=== PATIENT | female | born 1990 | race Caucasian/White ===

== ENCOUNTER 2021-07-01 17:08 | Emergency (ER) | payer MEDICAID ==
[2021-07-01 18:15] LABS: Appearance CLEAR (CLEAR); Bilirubin NEGATIVE (NEGATIVE); Dipstick done @ ? MAIN LAB; Glucose 250 mg/dL (NEGATIVE); Ketones NEGATIVE (NEGATIVE); Nitrite NEGATIVE (NEGATIVE); Ph 5.5 (5-6); Protein,Urine Dip TRACE (Negative); RBC NEGATIVE Ery/ul (0-5); Specific Gravity >=1.030 (1.005-1.025); Urobilinogen 0.2 mg/dL (0-1)
[2021-07-01 18:16] LABS: Absolute Neutrophil Ct (ANC) 9.88 (1.4-6.9); Basophil (Absolute #) 0.04 (0-0.4); Eosinophil % 2.1 % (0.00-5.0); Eosinophil (Absolute #) 0.28 (0-0.5); Hematocrit 41.5 % (35-47); Hemoglobin 13.8 gm/dl (12.0-16.0); Lymphocyte (Absolute #) 2.43 (1.0-4.6); Lymphocytes % 17.9 % (24.0-44.0); Mean Cell Volume 83.8 fl (78-100); Mean Corpuscular Hemoglobin 27.9 pg (26-32); Mean Corpuscular Hgb Concent. 33.3 g/dl (32-36); Mean Platelet Volume 10.2 fl (7.5-11.0); Monocyte (Absolute #) 0.93 (0.0-1.3); Monocytes % 6.9 % (0.0-12.0); Neutrophil % 72.8 % (36.0-66.0); Platelet Count 400 K/mm3 (150-450); Red Blood Count 4.95 M/mm3 (4.1-5.4); White Blood Count 13.6 K/mm3 (4.0-10.5)
[2021-07-01 18:30] LABS: Epithelial Cells RARE /HPF (FEW); Mucus SLIGHT /HPF (NEGATIVE); WBC 0-2 /HPF (0-5)
[2021-07-01 18:32] LABS: Urine Cultured Indicated? NO
[2021-07-01 18:38] LABS: ALBUMIN 4.3 g/dL (3.5-5.0); ALKALINE PHOSPHATASE 77 U/L (38-126); ANION GAP 14.5 MEQ/L (5-15); BLOOD UREA NITROGEN 10 mg/dL (7-17); CHLORIDE 105 mmol/L (98-107); Calcium 9.1 mg/dL (8.4-10.2); Carbon Dioxide 21 mmol/L (22-30); Creatinine 1 0.65 mg/dL (0.52-1.04); EST GLOMERULAR FILTRATION RATE > 60.0 ML/MIN; Glucose 190 mg/dL (74-106); Potassium 3.6 mmol/L (3.5-5.1); SGOT/AST 22 U/L (14-36); SGPT/ALT 19 U/L (0-35); SODIUM 137 mmol/L (137-145); Total Protein 7.5 g/dL (6.3-8.2)
[2021-07-01] MEDS ORDERED: Trandate 100 MG PO ONE (19:30)
--- NOTE | 2021-07-01 19:40 | ERPHSYRPT ---
- History of Present Illness Time Seen by Provider: 07/01/21 17:45 Source: patient Exam Limitations: no limitations Patient Subjective Stated Complaint: pt states "I was at the clinic and they told me my blood pressure was high." Triage Nursing Assessment: pt ambulated into the er; pt is axo x4; c/o HTN; pt states she has underlying hypertension and stop taking medicine back in december; pt is 5 weeks ; pt denies V/D; pt denies pain; clear apical pulse; strong rodney radial pulses; strong rodney pedal pulses; hypertension; tachycardic Physician History: G1, P0, Patient is a 30-year-old female presents to our ED as a referral from outpatient clinic. Patient states she has been experiencing nausea and felt unwell. Patient knew that she had not taken her blood pressure medication since December and was concerned. Patient took a home test that she has missed her period and it resulted as positive. Patient went to an outpatient clinic where her blood pressure was assessed and confirmed. Patient was then sent to our ED because her blood pressure was elevated. Patient otherwise asymptomatic. No chest pain or shortness of breath. No nausea vomiting or diaphoresis. No vaginal bleeding. No pelvic pain. No abdominal pain. Patient was previously on hydrochlorothiazide and a beta-rober. Patient feels well otherwise. She voices no other complaints or concerns at this time. Timing/Duration: today Severity: moderate Modifying Factors: Improves With: nothing Associated Symptoms: denies symptoms Allergies/Adverse Reactions: No Known Drug Allergies Allergy (Unverified 07/01/21 17:29) Hx Tetanus, Diphtheria Vaccination/Date Given: No (unknown) Hx Influenza Vaccination/Date Given: No Hx Pneumococcal Vaccination/Date Given: No Immunizations Up to Date: Yes Travel Risk - International Travel Have you traveled outside of the country in past 3 weeks: No - Coronavirus Screening Are you exhibiting any of the following symptoms?: No Close contact with a COVID-19 positive Pt in past 14-21 Days: No - Vaccine Status Have you recieved a Covid-19 vaccination: Yes 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[employer] - Review of Systems Constitutional: No Symptoms Eyes: No Symptoms Ears, Nose, & Throat: No Symptoms Respiratory: No Symptoms Cardiac: No Symptoms Abdominal/Gastrointestinal: No Symptoms Genitourinary Symptoms: No Symptoms Musculoskeletal: No Symptoms Skin: No Symptoms Neurological: No Symptoms Psychological: No Symptoms Endocrine: No Symptoms Hematologic/Lymphatic: No Symptoms Immunological/Allergic: No Symptoms All Other Systems: Reviewed and Negative - Past Medical History Pertinent Past Medical History: Yes Neurological History: No Pertinent History ENT History: No Pertinent History Cardiac History: Hypertension Respiratory History: Asthma Endocrine Medical History: No Pertinent History Musculoskeletal History: No Pertinent History GI Medical History: No Pertinent History History: No Pertinent History Psycho-Social History: Bipolar Female Reproductive Disorders: No Pertinent History - Past Surgical History Past Surgical History: Yes Other Surgical History: cyst removed from left wrist - Social History Smoking Status: Never smoker Exposure to second hand smoke: No Drug Use: none Patient Lives Alone: No - Female History Hx Now: Yes (6 weeks) - Nursing Vital Signs Nursing Vital Signs: Initial Vital Signs Temperature 98 F 07/01/21 17:30 Pulse Rate 107 H 07/01/21 17:30 Respiratory Rate 20 07/01/21 17:30 Blood Pressure 198/125 07/01/21 17:30 O2 Sat by Pulse Oximetry 97 07/01/21 17:30 Pain Scale Pain Intensity 0 - Physical Exam General Appearance: no apparent distress, alert Eye Exam: PERRL/EOMI, eyes nml inspection Ears, Nose, Throat Exam: normal ENT inspection, TMs normal, pharynx normal, moist mucous membranes Neck Exam: normal inspection, non-tender, supple, full range of motion Respiratory Exam: normal breath sounds, lungs clear, airway intact, No respiratory distress Cardiovascular Exam: regular rate/rhythm, normal heart sounds, normal peripheral pulses Gastrointestinal/Abdomen Exam: soft, normal bowel sounds, No tenderness, No mass Back Exam: normal inspection, normal range of motion, No CVA tenderness, No vertebral tenderness Extremity Exam: normal inspection, normal range of motion, pelvis stable Neurologic Exam: alert, oriented x 3, cooperative, normal mood/affect, nml cerebellar function, nml station & gait, sensation nml, No motor deficits Skin Exam: normal color, warm, dry, No rash Lymphatic Exam: No adenopathy SpO2 Interpretation: normal SpO2: 98 O2 Delivery: Room Air - Course Nursing assessment & vital signs reviewed: Yes Ordered Tests: Active Orders 24 hr Category Date Time Status Lift Builder Whole STAT Care 07/01/21 17:54 Active EKG-ER Only STAT Care 07/01/21 17:52 Active IV Insertion STAT Care 07/01/21 17:52 Active Pulse Oximetry (ED) STAT Care 07/01/21 17:52 Active CBC W DIFF Stat Lab 07/01/21 18:00 Completed CMP Stat Lab 07/01/21 18:00 Completed TROPONIN Q3H Lab 07/01/21 18:00 Received TROPONIN Q3H Lab 07/01/21 21:00 Ordered TROPONIN Q3H Lab 07/02/21 00:00 Ordered TROPONIN Q3H Lab 07/02/21 03:00 Ordered TROPONIN Q3H Lab 07/02/21 06:00 Ordered UA W/RFX CULTURE Stat Lab 07/01/21 18:00 Completed Medication Summary Discontinued Medications Generic Name Dose Route Start Last Admin Trade Name Freq PRN Reason Stop Dose Admin Labetalol HCl 200 mg 07/01/21 19:30 07/01/21 20:07 Labetalol Hcl 100 Mg Tablet PO 07/01/21 19:31 200 mg STAT ONE Administration Lab/Rad Data: Laboratory Result Diagrams 07/01/21 18:00 07/01/21 18:00 Laboratory Results 07/01/21 07/01/21 07/01/21 Range/Units 18:00 18:00 18:00 WBC 13.6 H (4.0-10.5) K/mm3 RBC 4.95 (4.1-5.4) M/mm3 Hgb 13.8 (12.0-16.0) gm/dl Hct 41.5 (35-47) % MCV 83.8 (78-100) fl MCH 27.9 (26-32) pg MCHC 33.3 (32-36) g/dl RDW 14.0 (11.5-14.0) % Plt Count 400 (150-450) K/mm3 MPV 10.2 (7.5-11.0) fl Gran % 72.8 H (36.0-66.0) % Eos # (Auto) 0.28 (0-0.5) Absolute Lymphs (auto) 2.43 (1.0-4.6) Absolute Monos (auto) 0.93 (0.0-1.3) Lymphocytes % 17.9 L (24.0-44.0) % Monocytes % 6.9 (0.0-12.0) % Eosinophils % 2.1 (0.00-5.0) % Basophils % 0.3 (0.0-0.4) % Absolute Granulocytes 9.88 H (1.4-6.9) Basophils # 0.04 (0-0.4) Sodium 137 (137-145) mmol/L Potassium 3.6 (3.5-5.1) mmol/L Chloride 105 (98-107) mmol/L Carbon Dioxide 21 L (22-30) mmol/L Anion Gap 14.5 (5-15) MEQ/L BUN 10 (7-17) mg/dL Creatinine 0.65 (0.52-1.04) mg/dL Estimated GFR > 60.0 ML/MIN Glucose 190 H (74-106) mg/dL Calcium 9.1 (8.4-10.2) mg/dL Total Bilirubin 0.40 (0.2-1.3) mg/dL AST 22 (14-36) U/L ALT 19 (0-35) U/L Alkaline Phosphatase 77 (38-126) U/L Serum Total Protein 7.5 (6.3-8.2) g/dL Albumin 4.3 (3.5-5.0) g/dL Urinalys Dipstick Clnc MAIN LAB Urine Color YELLOW (YELLOW) Urine Appearance CLEAR (CLEAR) Urine pH 5.5 (5-6) Ur Specific [place] >=1.030 (1.005-1.025) POC Urine Protein Conf TRACE (Negative) Urine Ketones NEGATIVE (NEGATIVE) Urine Nitrite NEGATIVE (NEGATIVE) Urine Bilirubin NEGATIVE (NEGATIVE) Urine Urobilinogen 0.2 (0-1) mg/dL Urine Leukocytes TRACE (NEGATIVE) Urine WBC (Auto) 0-2 (0-5) /HPF Urine RBC (Auto) NONE (0-2) /HPF U Epithel Cells (Auto) RARE (FEW) /HPF Urine Bacteria (Auto) NONE (NEGATIVE) /HPF Urine RBC NEGATIVE (0-5) Hector/ul Urine Mucus (Auto) SLIGHT (NEGATIVE) /HPF Ur Culture Indicated? NO Urine Glucose 250 (NEGATIVE) mg/dL - Progress Progress: improved Progress Note: Case discussed with Dr. Taylor. We will treat patient with oral labetalol. Patient received 200 mg labetalol. We will reassess blood pressure. If blood pressure is less than 160/100 patient may be discharged home. 07/01/21 19:40 Blood pressure is 147/106 patient requesting discharge. Will discharge patient home. Patient will be discharged with a prescription for labetalol per request. Patient agrees to follow-up with [facility]PER[facility] within 48 hours for evaluation. Portions of this note were created with voice recognition technology. There may be grammatical, spelling, punctuation or sound alike errors 07/01/21 20:56 [address]iscuss[address] with DrMehul: Kyle Will see patient in: office Counseled pt/family regarding: diagnosis, need for follow-up, rad results - Departure Departure Disposition: Home Clinical Impression: Essential hypertension Condition: Stable Critical Care Time: No Referrals: DOCTOR,NO FAMILY [Primary Care Provider] - Follow up/PCP as directed LEV TAYLOR DO [ACTIVE STAFF] - Follow up/PCP as directed Additional Instructions: Discharge/Care Plan SUZANNAPAWAN CHAO was seen on 07/01/21 in the Emergency Room. The patient was counseled regarding Diagnosis,Lab results, Imaging studies, need for follow up and when to return to the Emergency Room. Prescriptions given: Discharge Note I have spoken with the patient and/or caregivers. I have explained the patient's condition, diagnosis and treatment plan based on the information available to me at this time. I have answered the patient's and/or caregiver's questions and add ressed any concerns. The patient and/or caregivers have as good understanding of the patient's diagnosis, condition and treatment plan as can be expected at this point. The vital signs have been stable. The patient's condition is stable and appropriate for discharge from the emergency department. The patient will pursue further outpatient evaluation with the primary care physician or other designated or consulting physician as outlined in the discharge instructions. The patient and/or caregivers are agreeable to this plan of care and follow-up instructions have been explained in detail. The patient and/or caregivers have received these instruction. The patient/and or caregivers are aware that any significant change in condition or worsening of symptoms should prompt an immediate return to this or the closest emergency department or call 911. Prescriptions: Labetalol HCl 100 mg [Trandate 100 MG] 200 mg PO BID 7 Days #28 tablet
[2021-07-01 21:05] VITALS: BP 155/95; PULSE 99; O2SAT 99
== END 2021-07-01 21:11 | disposition home or self-care (01) ==
LOC: ED 17:08
DX: I10 Essential (primary) hypertension (principal); R11.0 Nausea; Z33.1 Pregnant state, incidental
CPT/HCPCS: 36000; 36415; 80053; 81015; 85025; 93005; 93041; 94760; 99284; A9270-GY

== ENCOUNTER 2021-07-24 09:41 | Emergency (ER) | payer MEDICAID ==
[2021-07-24] MEDS ORDERED: TYLENOL EXTRA STRENGTH 500 MG PO STA (10:06)
[2021-07-24] MEDS ORDERED: Sodium Chloride 0.9% 1000 ML 1,000 ML IV STA (10:08)
[2021-07-24] MEDS ORDERED: Zofran 4 MG/2 ML VIAL IV ONE (10:08)
[2021-07-24] MEDS ORDERED: Zofran 4 MG/2 ML VIAL ONE (10:09)
[2021-07-24] MEDS ORDERED: Sodium Chloride 0.9% 1000 ML 1,000 ML ONE (10:10)
[2021-07-24] MEDS ORDERED: TYLENOL EXTRA STRENGTH 500 MG ONE (10:10)
[2021-07-24 10:35] LABS: Absolute Neutrophil Ct (ANC) 8.16 x10^3/uL (1.4-6.9); Basophil (Absolute #) 0.04 x10^3/uL (0-0.4); Eosinophil % 3.2 % (0.00-5.0); Eosinophil (Absolute #) 0.36 x10^3/uL (0-0.5); Hematocrit 39.7 % (35-47); Hemoglobin 13.2 g/dL (12.0-16.0); Lymphocyte (Absolute #) 2.19 x10^3/uL (1.0-4.6); Lymphocytes % 19.2 % (24.0-44.0); Mean Cell Volume 86.7 fL (78-100); Mean Corpuscular Hemoglobin 28.8 pg (26-32); Mean Corpuscular Hgb Concent. 33.2 g/dL (32-36); Mean Platelet Volume 9.9 fL (7.5-11.0); Monocytes % 5.3 % (0.0-12.0); Neutrophil % 71.6 % (36.0-66.0); Platelet Count 300 x10^3/uL (150-450); Red Blood Count 4.58 x10^6/uL (4.1-5.4); Red Cell Distribution Width 13.6 % (11.5-14.0); White Blood Count 11.4 x10^3/uL (4.0-10.5)
[2021-07-24 11:09] LABS: ALBUMIN 3.9 g/dL (3.5-5.0); ALKALINE PHOSPHATASE 58 U/L (38-126); ANION GAP 12.7 MEQ/L (5-15); BLOOD UREA NITROGEN 9 mg/dL (7-17); CHLORIDE 106 mmol/L (98-107); Calcium 9.4 mg/dL (8.4-10.2); Carbon Dioxide 20 mmol/L (22-30); Creatinine 1 0.61 mg/dL (0.52-1.04); EST GLOMERULAR FILTRATION RATE > 60.0 ML/MIN; Glucose 168 mg/dL (74-106); Potassium 4.1 mmol/L (3.5-5.1); SGOT/AST 23 U/L (14-36); SGPT/ALT 21 U/L (0-35); SODIUM 134 mmol/L (137-145); Total Protein 6.8 g/dL (6.3-8.2)
[2021-07-24 11:11] LABS: ABO TYPING O; Antibody Screen NEGATIVE (NEGATIVE); RH TYPING POSITIVE
[2021-07-24 11:22] VITALS: O2SAT 99
--- NOTE | 2021-07-24 11:34 | ERPHSYRPT ---
- History of Present Illness Time Seen by Provider: 07/24/21 10:24 Source: patient Exam Limitations: no limitations Patient Subjective Stated Complaint: Pt is 8 weeks and woke up to abdominal cramping and went to the restroom and was vaginally bleeding Triage Nursing Assessment: Pt brought to the ER by her boyfriend, hypertensive, rates low abdominal pain as 8/10, last intercourse was 2 days ago, first , denies any injuries or heavy lifting Physician History: 30 years old 1 para 0 ,8 weeks gestation presented in the ER with chief complaint of pelvic cramping waking her up from sleep this morning and noticed some spotting. Denies any clots or passage of tissue. Pelvic pain is improved. Patient saw high risk doctor in [place] and yesterday was evaluated at [facility] with normal ultrasound. Denies any urinary complaints. Timing/Duration: today, resolved prior to arrival, sudden Activites at Onset: sleep Quality: cramping Onset Location: pelvic pain Pain Radiation: none Severity of Pain-Max: moderate Severity of Pain-Current: none Prior abdominal problems: none Modifying Factors: Improves With: nothing Associated Symptoms: Allergies/Adverse Reactions: No Known Drug Allergies Allergy (Verified 07/24/21 09:54) Home Medications: Vit No.179/Iron/Folic [ Tablet] 1 tab PO DAILY 07/24/21 [History] ondansetron HCL [Ondansetron HCl] 4 mg PO Q8H PRN 07/24/21 [History] Hx Tetanus, Diphtheria Vaccination/Date Given: No (unknown) Hx Influenza Vaccination/Date Given: No Hx Pneumococcal Vaccination/Date Given: No Travel Risk - International Travel Have you traveled outside of the country in past 3 weeks: No - Coronavirus Screening Are you exhibiting any of the following symptoms?: No Close contact with a COVID-19 positive Pt in past 14-21 Days: No - Vaccine Status Have you recieved a Covid-19 vaccination: 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[employer] - Review of Systems Constitutional: No Symptoms Eyes: No Symptoms Ears, Nose, & Throat: No Symptoms Respiratory: No Symptoms Cardiac: No Symptoms Abdominal/Gastrointestinal: Constipation Genitourinary Symptoms: , Vaginal Bleeding Musculoskeletal: No Symptoms Skin: No Symptoms Neurological: No Symptoms Endocrine: No Symptoms Hematologic/Lymphatic: No Symptoms - Past Medical History Pertinent Past Medical History: Yes Neurological History: No Pertinent History ENT History: No Pertinent History Cardiac History: Hypertension Respiratory History: Asthma Endocrine Medical History: No Pertinent History Musculoskeletal History: No Pertinent History GI Medical History: No Pertinent History History: No Pertinent History Psycho-Social History: Bipolar Female Reproductive Disorders: No Pertinent History - Past Surgical History Past Surgical History: Yes Other Surgical History: cyst removed from left wrist - Social History Smoking Status: Never smoker Exposure to second hand smoke: No Drug Use: none Patient Lives Alone: No - Female History Hx Now: Yes Expected Date of Delivery: 03/04/22 - Nursing Vital Signs Nursing Vital Signs: Initial Vital Signs Temperature 96.2 F 07/24/21 09:48 Pulse Rate 91 H 07/24/21 09:48 Blood Pressure 164/125 07/24/21 09:48 O2 Sat by Pulse Oximetry 99 07/24/21 09:48 Pain Scale Pain Intensity 8 - Physical Exam General Appearance: no apparent distress, alert Eye Exam: PERRL/EOMI Neck Exam: normal inspection, supple, full range of motion Respiratory Exam: normal breath sounds, lungs clear Cardiovascular Exam: regular rate/rhythm, normal heart sounds Gastrointestinal/Abdomen Exam: soft, normal bowel sounds, No tenderness Back Exam: normal inspection, normal range of motion Extremity Exam: normal inspection, normal range of motion, pelvis stable Neurologic Exam: alert, oriented x 3, cooperative, 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 as tested Skin Exam: normal color SpO2 Interpretation: normal SpO2: 99 O2 Delivery: Room Air Ordered Tests: Active Orders 24 hr Category Date Time Status CBC W DIFF Stat Lab 07/24/21 10:25 Completed CMP Stat Lab 07/24/21 10:25 Completed HCG, Quantitative (Inhouse) Stat Lab 07/24/21 10:25 Completed UA W/RFX CULTURE Stat Lab 07/24/21 11:44 Completed Medication Summary Discontinued Medications Generic Name Dose Route Start Last Admin Trade Name Freq PRN Reason Stop Dose Admin Acetaminophen 1,000 mg 07/24/21 10:06 07/24/21 10:11 Acetaminophen 500 Mg Tablet PO 07/24/21 10:07 1,000 mg STAT STA Administration Acetaminophen Confirm 07/24/21 10:10 Acetaminophen 500 Mg Tablet Administered 07/24/21 10:11 Dose 1,000 mg .ROUTE .STK-MED ONE Sodium Chloride 1,000 mls @ 999 mls/hr 07/24/21 10:08 07/24/21 11:15 Sodium Chloride 0.9% 1000 Ml IV 07/24/21 11:08 Infused .Q1H1M STA Infusion Sodium Chloride Confirm 07/24/21 10:10 Sodium Chloride 0.9% 1000 Ml Administered 07/24/21 10:11 Dose 1,000 mls @ ud .ROUTE .STK-MED ONE Ondansetron HCl 4 mg 07/24/21 10:08 07/24/21 10:10 Ondansetron Hcl 4 Mg/2 Ml Vial IV 07/24/21 10:09 4 mg STAT ONE Administration Ondansetron HCl Confirm 07/24/21 10:09 Ondansetron Hcl 4 Mg/2 Ml Vial Administered 07/24/21 10:10 Dose 4 mg .ROUTE .STK-MED ONE Lab/Rad Data: Laboratory Result Diagrams 07/24/21 10:25 07/24/21 10:25 Laboratory Results 07/24/21 07/24/21 07/24/21 Range/Units 11:44 10:25 10:25 WBC (4.0-10.5) x10^3/uL RBC (4.1-5.4) x10^6/uL Hgb (12.0-16.0) g/dL Hct (35-47) % MCV (78-100) fL MCH (26-32) pg MCHC (32-36) g/dL RDW (11.5-14.0) % Plt Count (150-450) x10^3/uL MPV (7.5-11.0) fL Gran % (36.0-66.0) % Immature Gran % (Auto) (0.00-0.4) % Nucleat RBC Rel Count (0.00-0.1) % Eos # (Auto) (0-0.5) x10^3/uL Immature Gran # (Auto) (0.00-0.03) x10^3u/L Absolute Lymphs (auto) (1.0-4.6) x10^3/uL Absolute Monos (auto) (0.0-1.3) x10^3/uL Absolute Nucleated RBC (0.00-0.01) x10^3u/L Lymphocytes % (24.0-44.0) % Monocytes % (0.0-12.0) % Eosinophils % (0.00-5.0) % Basophils % (0.0-0.4) % Absolute Granulocytes (1.4-6.9) x10^3/uL Basophils # (0-0.4) x10^3/uL Sodium 134 L (137-145) mmol/L Potassium 4.1 (3.5-5.1) mmol/L Chloride 106 (98-107) mmol/L Carbon Dioxide 20 L (22-30) mmol/L Anion Gap 12.7 (5-15) MEQ/L BUN 9 (7-17) mg/dL Creatinine 0.61 (0.52-1.04) mg/dL Estimated GFR > 60.0 ML/MIN Glucose 168 H (74-106) mg/dL Calcium 9.4 (8.4-10.2) mg/dL Total Bilirubin 0.60 (0.2-1.3) mg/dL AST 23 (14-36) U/L ALT 21 (0-35) U/L Alkaline Phosphatase 58 (38-126) U/L Serum Total Protein 6.8 (6.3-8.2) g/dL Albumin 3.9 (3.5-5.0) g/dL Beta HCG, Quant 91144 mIU/ml Urinalys Dipstick Clnc MAIN LAB Urine Color YELLOW (YELLOW) Urine Appearance CLEAR (CLEAR) Urine pH 6.5 (5-6) Ur Specific [place] >=1.030 (1.005-1.025) POC Urine Protein Conf NEGATIVE (Negative) Urine Ketones NEGATIVE (NEGATIVE) Urine Nitrite NEGATIVE (NEGATIVE) Urine Bilirubin NEGATIVE (NEGATIVE) Urine Urobilinogen 0.2 (0-1) mg/dL Urine Leukocytes NEGATIVE (NEGATIVE) Urine WBC (Auto) 0-2 (0-5) /HPF Urine RBC (Auto) 0-2 (0-2) /HPF U Epithel Cells (Auto) NONE (FEW) /HPF Urine Bacteria (Auto) RARE (NEGATIVE) /HPF Urine RBC NEGATIVE (0-5) Hector/ul Urine Mucus (Auto) SLIGHT (NEGATIVE) /HPF Ur Culture Indicated? NO Urine Glucose NEGATIVE (NEGATIVE) mg/dL ABO Group O Rh Factor POSITIVE Antibody Screen NEGATIVE (NEGATIVE) 07/24/21 Range/Units 10:25 WBC 11.4 H (4.0-10.5) x10^3/uL RBC 4.58 (4.1-5.4) x10^6/uL Hgb 13.2 (12.0-16.0) g/dL Hct 39.7 (35-47) % MCV 86.7 (78-100) fL MCH 28.8 (26-32) pg MCHC 33.2 (32-36) g/dL RDW 13.6 (11.5-14.0) % Plt Count 300 (150-450) x10^3/uL MPV 9.9 (7.5-11.0) fL Gran % 71.6 H (36.0-66.0) % Immature Gran % (Auto) 0.3 (0.00-0.4) % Nucleat RBC Rel Count 0.0 (0.00-0.1) % Eos # (Auto) 0.36 (0-0.5) x10^3/uL Immature Gran # (Auto) 0.03 (0.00-0.03) x10^3u/L Absolute Lymphs (auto) 2.19 (1.0-4.6) x10^3/uL Absolute Monos (auto) 0.60 (0.0-1.3) x10^3/uL Absolute Nucleated RBC 0.00 (0.00-0.01) x10^3u/L Lymphocytes % 19.2 L (24.0-44.0) % Monocytes % 5.3 (0.0-12.0) % Eosinophils % 3.2 (0.00-5.0) % Basophils % 0.4 (0.0-0.4) % Absolute Granulocytes 8.16 H (1.4-6.9) x10^3/uL Basophils # 0.04 (0-0.4) x10^3/uL Sodium (137-145) mmol/L Potassium (3.5-5.1) mmol/L Chloride (98-107) mmol/L Carbon Dioxide (22-30) mmol/L Anion Gap (5-15) MEQ/L BUN (7-17) mg/dL Creatinine (0.52-1.04) mg/dL Estimated GFR ML/MIN Glucose (74-106) mg/dL Calcium (8.4-10.2) mg/dL Total Bilirubin (0.2-1.3) mg/dL AST (14-36) U/L ALT (0-35) U/L Alkaline Phosphatase (38-126) U/L Serum Total Protein (6.3-8.2) g/dL Albumin (3.5-5.0) g/dL Beta HCG, Quant mIU/ml Urinalys Dipstick Clnc Urine Color (YELLOW) Urine Appearance (CLEAR) Urine pH (5-6) Ur Specific [place] (1.005-1.025) POC Urine Protein Conf (Negative) Urine Ketones (NEGATIVE) Urine Nitrite (NEGATIVE) Urine Bilirubin (NEGATIVE) Urine Urobilinogen (0-1) mg/dL Urine Leukocytes (NEGATIVE) Urine WBC (Auto) (0-5) /HPF Urine RBC (Auto) (0-2) /HPF U Epithel Cells (Auto) (FEW) /HPF Urine Bacteria (Auto) (NEGATIVE) /HPF Urine RBC (0-5) Hector/ul Urine Mucus (Auto) (NEGATIVE) /HPF Ur Culture Indicated? Urine Glucose (NEGATIVE) mg/dL ABO Group Rh Factor Antibody Screen (NEGATIVE) - Progress Progress: improved Air Movement: good Progress Note: 07/24/21 12:10 [id number] Blood Culture(s) Obtained: No Antibiotics given: No Discussed with : Kyle Counseled pt/family regarding: lab results, diagnosis, need for follow-up - Departure Departure Disposition: Home Clinical Impression: Vaginal bleeding affecting early Condition: Stable Critical Care Time: No Referrals: DOCTOR,NO FAMILY [Primary Care Provider] - Follow up/PCP as directed LEV TAYLOR DO [ACTIVE STAFF] - Follow up/PCP as directed (As scheduled) Instructions: Bleeding With (DC) Additional Instructions: None plenty of fluids to keep yourself well-hydrated. Take your blood pressure medications regularly, keep a log and follow-up with your OB for reevaluation to see if it needs any changes. Keep your regular appointment as scheduled with Dr. Taylor. Return to ER for cramping, heavy vaginal bleeding, urinary symptoms etc.
[2021-07-24 11:46] LABS: Appearance CLEAR (CLEAR); Bilirubin NEGATIVE (NEGATIVE); Dipstick done @ ? MAIN LAB; Glucose NEGATIVE (NEGATIVE); Ketones NEGATIVE (NEGATIVE); Nitrite NEGATIVE (NEGATIVE); Ph 6.5 (5-6); Protein,Urine Dip NEGATIVE (Negative); RBC NEGATIVE Ery/ul (0-5); Specific Gravity >=1.030 (1.005-1.025); Urobilinogen 0.2 mg/dL (0-1)
[2021-07-24 11:49] LABS: Bacteria RARE /HPF (NEGATIVE); Mucus SLIGHT /HPF (NEGATIVE); RBC 0-2 /HPF (0-2); Urine Cultured Indicated? NO; WBC 0-2 /HPF (0-5)
[2021-07-24 12:05] LABS: HCG, Quantitative (Inhouse) 31878 mIU/ml
[2021-07-24 12:20] VITALS: PULSE 68
[2021-07-24 12:21] VITALS: BP 157/101
== END 2021-07-24 12:22 | disposition home or self-care (01) ==
LOC: ED 09:41
DX: O20.9 Hemorrhage in early pregnancy, unspecified (principal); Z3A.08 8 weeks gestation of pregnancy; R10.2 Pelvic and perineal pain; I10 Essential (primary) hypertension
CPT/HCPCS: 36415; 80053; 81015; 84702; 85025; 86850; 86900; 86901; 96360; 96374; 99284; J2405; A9270-GY